=== PATIENT | female | born 1975 | race Hispanic/Latino ===

== ENCOUNTER → 2020-09-25 | Outpatient (CLI) | payer OTHER | END | disposition home or self-care (01) | LOC: SLP 20:00 | PROVIDERS: ATTEND Internal Medicine Critical Care Medicine | DX: G47.33 Obstructive sleep apnea (adult) (pediatric) (principal); I10 Essential (primary) hypertension; R51.9 Headache, unspecified; R53.83 Other fatigue | CPT/HCPCS: 95810 ==

== ENCOUNTER → 2022-03-12 | Outpatient (CLI) | payer OTHER ==
[~2022-03-12] VITALS: Ht 160 cm; Wt 88.9 kg
[~2022-03-12] MED LIST: REGADENOSON 0.4 MG/5 ML PF SYG IVP SCH
== END | disposition home or self-care (01) ==
LOC: SHCH 09:40
PROVIDERS: ATTEND Internal Medicine Cardiovascular Disease
DX: I49.1 Atrial premature depolarization (principal); R00.0 Tachycardia, unspecified
CPT/HCPCS: 78452; 96374; 93017; J2785; A9500 ×2

== ENCOUNTER 2023-09-12 07:50 | Day surgery (SDC) | payer OTHER ==
[2023-09-12] VITALS (12 sets, daily range): BP systolic 103–134; BP diastolic 61–83; PULSE 65–83; RESP 13–17
[~2023-09-12] VITALS: Ht 160 cm; Wt 92.1 kg
[~2023-09-12 07:50] MED LIST changes: +CHOL500051 PO; +CYAN50009 PO; +FLEC50TA3 PO; +FLUT15OI4 TP; +KRIL1CAP44 PO; +LORA10TA7 PO; +PANT40TA54 PO; -REGADENOSON 0.4 MG/5 ML PF SYG IVP SCH; +VITA1CAP17 PO; +WHEA1TAB7 PO
[2023-09-12] MEDS: 0.9%NACL 1000ML 1,000 ML IV ONE (09:25)
[2023-09-12] MEDS ORDERED: PROPOFOL 10 MG/ML 20ML VIAL IV ONE (10:43)
== END 2023-09-12 15:25 | disposition home or self-care (01) ==
LOC: DAH 07:50 → ENDO 07:50
PROVIDERS: ATTEND Internal Medicine Gastroenterology
DX: Z12.11 Encounter for screening for malignant neoplasm of colon (principal); D12.5 Benign neoplasm of sigmoid colon; K29.50 Unspecified chronic gastritis without bleeding; K21.00 Gastro-esophageal reflux disease with esophagitis, without bleeding; K44.9 Diaphragmatic hernia without obstruction or gangrene; K31.84 Gastroparesis; R12 Heartburn; R68.81 Early satiety; K59.00 Constipation, unspecified; R14.0 Abdominal distension (gaseous); I10 Essential (primary) hypertension; E66.9 Obesity, unspecified; Z68.36 Body mass index [BMI] 36.0-36.9, adult; Z86.16 Personal history of COVID-19; Z80.0 Family history of malignant neoplasm of digestive organs; Z79.899 Other long term (current) drug therapy
CPT/HCPCS: 81025; 82948 ×2; 43239; 45385; J7030 ×2; J2704; A4620; A4215; A4223; A7002; A4221; A4663; A4606; J3490